=== PATIENT | female | born 1990 | race Caucasian/White ===

== ENCOUNTER 2021-10-17 12:58 | Inpatient (IN) | payer OTHER, SELFPAY ==
[~2021-10-17] VITALS: Ht 162.6 cm; Wt 69.9 kg
[2021-10-17 13:15] VITALS: BP 138/91
[2021-10-17] MEDS ORDERED: NACL 0.9% 1,000 ML IV SCH (13:30)
[2021-10-17] MEDS ORDERED: VANCOMYCIN 1,000 MG in DEXTROSE 5% 250 ML IV ONE (13:35)
--- NOTE | 2021-10-17 13:41 | NUR ---
iv established, labs drawn at this time
[2021-10-17] MEDS ORDERED: cefTRIAXone 1,000 MG VIAL ONE (13:46)
--- NOTE | 2021-10-17 14:06 | NUR ---
31 y/o female referred here from urgent care for uncontrolled dm2 for 13 years. Bs at facility was 425, bs in triage was 427. Pt is c/o of left buttock pain, described as throbbing non-radiating for 2 weeks. Denies nausea, vomiting, diarrhea. Skin is pink/warm/dry. a&o x4 with even and steady gait. Lungs clear bl, heart rate even and regular. Pt denies any fever, cp, sob, or cough at this time. Patient states pain is 7/10 at this time. Vss. patient positioned for comfort. Hob elevated. Bed down. Ermd made aware of pt. Pmh: dm2 [facility]: non compliant due to insurance
[2021-10-17 14:10] LABS: BASOPHILS % (AUTO) 0.2 % (0.0-2.0); EOSINOPHILS # (AUTO) 0.1 K/uL (0-0.4); EOSINOPHILS % (AUTO) 0.5 % (0.0-4.0); HEMATOCRIT 39.9 % (36-48); HEMOGLOBIN 13.5 g/dL (12.0-16.0); LYMPHOCYTES # (AUTO) 2.6 K/uL (2.5-16.5); LYMPHOCYTES % (AUTO) 15.8 % (20.5-51.1); MEAN CORPUSCULAR HEMOGLOBIN 32 pg (27-31); MEAN CORPUSCULAR HGB CONC 34 g/dL (33-37); MEAN CORPUSCULAR VOLUME 93.7 fL (80-94); MONOCYTES % (AUTO) 5.9 % (1.7-9.3); NEUTROPHILS # (AUTO) 12.6 K/uL (1.8-7.7); NEUTROPHILS % (AUTO) 77.6 % (42.2-75.2); PLATELET COUNT (AUTO) 508 K/uL (140-450); RED BLOOD CELL COUNT(AUTO) 4.26 MIL/uL (4.20-5.40); RED CELL DISTRIBUTION WIDTH 12.6 % (11.6-13.7); WHITE BLOOD COUNT (AUTO) 16.2 K/uL (4.8-10.8)
[2021-10-17] MEDS ORDERED: VANCOMYCIN 1,000 MG VIAL ONE (14:20)
--- NOTE | 2021-10-17 14:23 | NUR ---
PT TAKEN TO CT VIA W/C.
[2021-10-17 14:40] LABS: ALBUMIN 2.9 g/dL (3.4-5.0); ANION GAP 13.3 (8-16); CARBON DIOXIDE 29.2 mmol/L (21-32); POTASSIUM 3.5 mmol/L (3.5-5.1); TOTAL BILIRUBIN 0.2 mg/dL (0.0-1.0)
[2021-10-17 14:42] LABS: APPEARANCE,URINE CLEAR (CLEAR); BILIRUBIN,URINE 1+ (NEGATIVE); BLOOD, URINE NEGATIVE (NEGATIVE); COLOR,URINE YELLOW (YELLOW); LEUKOCYTE ESTERASE ,URINE NEGATIVE (NEGATIVE); NITRITE, URINE NEGATIVE (NEGATIVE); UGLUCOSE 3+ (NEGATIVE)
[2021-10-17 15:10] LABS: RBC,URINE 0-5 /HPF (0-5); WBC,URINE 0-5 /HPF (0-5)
[2021-10-17] MEDS ORDERED: HYDROcodone/APAP 5/325 MG 1 TAB TAB PO PRN ×2 (15:45→18:35)
[2021-10-17] MEDS ORDERED: DOCUSATE SODIUM 100 MG GELCAP PO PRN (15:45)
[2021-10-17] MEDS ORDERED: MAGNESIUM OXIDE 400 MG TAB PO PRN (15:45)
[2021-10-17] MEDS ORDERED: ACETAMINOPHEN 325 MG TAB PO PRN ×2 (15:45→18:35)
[2021-10-17] MEDS ORDERED: DEXTROSE 50% 50 ML SYR IVP PRN (15:45)
[2021-10-17] MEDS ORDERED: SODIUM PHOS / POTASSIUM PHOS 1 PKT PDR PO PRN (15:45)
[2021-10-17] MEDS ORDERED: POTASSIUM CHLORIDE 10 MEQ TABER PO PRN (15:45)
[2021-10-17] MEDS ORDERED: VANCOMYCIN PER PHARMACY MC PRN (15:45)
[2021-10-17] MEDS ORDERED: ONDANSETRON 4 MG/2 ML VIAL IM/IVP PRN (15:45)
[2021-10-17] MEDS ORDERED: MORPHINE SULFATE 2 MG/ML SYR IVP PRN ×2 (15:45→18:35)
[2021-10-17] MEDS: INSULIN LISPRO SLIDING SCALE 100 UNITS/ML VIAL SUBQ PRN ×3 (15:56→21:49)
--- NOTE | 2021-10-17 16:14 | NUR ---
Patient will be admitted to care of robyn spencer. Admited to med surg. Will go to room 105a. Belongings list completed. Report to km villareal.
[2021-10-17] MEDS: BLOOD GLUCOSE MONITORING 1 DEV DEV FS SCH ×2 (16:30→21:42)
--- NOTE | 2021-10-17 16:49 | NUR ---
PT ARRIVED ON UNIT VIA WHEEL CHAIR . PT ORIENTED TO ROOM HOSPITAL POLICIES AND MRSA SWAB OBTAINED, ALL SAFETY MEASURES ARE IN PLACE.
[2021-10-17 16:51] LABS: PHOSPHORUS 3.9 mg/dL (2.5-4.9)
[2021-10-17] MEDS: NACL 0.9% 1,000 ML IV SCH ×2 (17:25→21:51)
--- NOTE | 2021-10-17 18:00 | NUR ---
MEAL TRAY SET UP F0R PATIENT FAMILY MEMBER AT BEDSIDE ALL SAFETY MEASURES ARE IN PLACE.
[2021-10-17] MEDS ORDERED: MORPHINE SULFATE 4 MG/ML SYR IV PRN (18:35)
[2021-10-17] MEDS ORDERED: ONDANSETRON 4 MG/2 ML VIAL IV PRN (18:35)
--- NOTE | 2021-10-17 19:06 | NUR ---
OH AT BEDSIDE , EXPLAINED PROCEDURE RISK BENEFITS ALTERNATIVES, MORBIDITY AND MORTALITY . PT VERBALIZED UNDERSTANDING AND NO FURTHER QUESTIONS AT THIS TIME
--- NOTE | 2021-10-17 19:30 | NUR ---
PATIENT ENDORSED TO GROUNDS FOREMAN NURSE FOR CONTINUITY OF CARE. PT IN STABLE CONDITION
--- NOTE | 2021-10-17 19:31 | NUR ---
RECD. RESTING IN BED, AWAKE, A/OX4. RESPIRATION EVEN AND UNLABORED. IV OF NS INFUSING AT 60 ML/HR, LEFT AC G18. SKIN IS INTACT. ABLE TO VERBALIZED NEEDS, AMBULATORY TO THE BR. LEFT BUTTOCKS WITH REDNESS. NPO PAST MIDNIGHT FOR INCISION AND DRAINAGE OF LEFT GLUTEAL AREA. ON IV VANCOMYCIN. DENIES PAIN 0/10.
--- NOTE | 2021-10-17 19:31 | NUR ---
RECD. RESTING IN BED, AWAKE, A/OX4. RESPIRATION EVEN AND UNLABORED. IV OF NS INFUSING AT 60 ML/HR, LEFT HAND G22. ABLE TO VERBALIZED NEEDS. WITH RIGHT SIDE WEAKNESS, USES THE BEDSIDE COMMODE. NO NAUSEA NOTED. DENIES PAIN . Addendum: 10/17/21 at 2314 by Sofya Fulton LVN CORRECTION: THIS CHARTING IS NOT FOR THIS PATIENT.
[2021-10-17 19:51] LABS: ALBUMIN 2.9 g/dL (3.4-5.0); CARBON DIOXIDE 28.6 mmol/L (21-32); CREATININE 0.9 mg/dL (0.6-1.3); POTASSIUM 3.6 mmol/L (3.5-5.1); TOTAL BILIRUBIN 0.2 mg/dL (0.0-1.0)
[2021-10-17 20:00] VITALS: BP 114/72
--- NOTE | 2021-10-17 20:09 | NUR ---
ENDORSED TO LINWOOD BARRIENTOS FOR CONTINUITY OF CARE.
--- NOTE | 2021-10-17 20:10 | NUR ---
RECEIVED REPORT FROM EDWIN FOR CONTINUITY OF CARE. PT IS AWAKE A&OX4. ON RA, NO S/S OF DISTRESS. SKIN IS WARM, DRY AND NON DIAPHORETIC. IV ON LEFT AC 18G RUNNING NS @60 MLS/HR. PT IS NPO AFTER MIDNIGHT. CALL LIGHT WITHIN REACH. ALL SAFETY MEASURES IN PLACE. WILL CONTINUE TO MONITOR.
--- NOTE | 2021-10-17 21:42 | NUR ---
BLOOD SUGAR CHECK 314. ADMINISTERED 8UNITS HUMALOG ORDERED PER SLIDING SCALE. PT TOLERATED IT WELL. WILL CONTINUE TO MONITOR.
--- NOTE | 2021-10-17 23:50 | NUR ---
ROUNDED ON PT. REMINDED PT OF NPO STATUS AFTER MIDNIGHT. PT VERBALIZED UNDERSTANDING. ALL SAFETY MEASURES IN PLACE,
[2021-10-18] MEDS ORDERED: VANCOMYCIN 1,000 MG VIAL ONE (01:37)
--- NOTE | 2021-10-18 01:50 | NUR ---
ADMINISTERED SCHEDULED MEDICATION. PT TOLERATED IT WELL. WILL CONTINUE TO MONITOR
[2021-10-18] MEDS ORDERED: VANCOMYCIN 750 MG in DEXTROSE 5% 250 ML IV SCH (02:00)
[2021-10-18 02:33] LABS: PROTHROMBIN TIME 10.1 secs (10.8-13.4)
[2021-10-18 04:00] VITALS: BP 120/74
--- NOTE | 2021-10-18 04:08 | NUR ---
ROUNDED ON PT. VITAL SIGNS TAKEN .RESTING IN BED. NO S/S OF DISTRESS. ALL SAFETY MEASURES IN PLACE. WILL CONTINUE TO MONITOR.
--- NOTE | 2021-10-18 06:30 | NUR ---
BS CHECK 290 COVERAGE HELD PER PROTOCOL. PT IS NPO FOR SCHEDULED I&D AT 0830. CHARGE NURSE AWARE. CHG BATH PROVIDED.
[2021-10-18] MEDS: BLOOD GLUCOSE MONITORING 1 DEV DEV FS SCH ×4 (06:41→21:53)
[2021-10-18 06:45] LABS: BASOPHILS % (AUTO) 0.3 % (0.0-2.0); EOSINOPHILS # (AUTO) 0.1 K/uL (0-0.4); EOSINOPHILS % (AUTO) 0.6 % (0.0-4.0); HEMATOCRIT 33.2 % (36-48); HEMOGLOBIN 11.3 g/dL (12.0-16.0); LYMPHOCYTES # (AUTO) 2.5 K/uL (2.5-16.5); LYMPHOCYTES % (AUTO) 17.5 % (20.5-51.1); MEAN CORPUSCULAR HEMOGLOBIN 32 pg (27-31); MEAN CORPUSCULAR HGB CONC 34 g/dL (33-37); MEAN CORPUSCULAR VOLUME 92.4 fL (80-94); MONOCYTES # (AUTO) 0.8 K/uL (0.8-1.0); MONOCYTES % (AUTO) 5.9 % (1.7-9.3); NEUTROPHILS # (AUTO) 10.7 K/uL (1.8-7.7); NEUTROPHILS % (AUTO) 75.7 % (42.2-75.2); PLATELET COUNT (AUTO) 399 K/uL (140-450); RED BLOOD CELL COUNT(AUTO) 3.59 MIL/uL (4.20-5.40); RED CELL DISTRIBUTION WIDTH 12.3 % (11.6-13.7); WHITE BLOOD COUNT (AUTO) 14.2 K/uL (4.8-10.8)
--- NOTE | 2021-10-18 07:17 | NUR ---
ENDORSED TO AM SHIFT NURSE FOR CONTINUITY OF CARE.PT IS STABLE.
--- NOTE | 2021-10-18 07:29 | NUR ---
PT REPORT RECEIVED FROM MANAGER AUDIT NURSE. PATIENT RESTING IN BED EYES CLOSED. REMAINS NPO. PT EDUCATED AND VERBALIZED UNDERSTANDING RE: NPO STATUS. ALL SAFETY MEASURES IN PLACE.
[2021-10-18] MEDS ORDERED: PROPOFOL 200 MG/20 ML VIAL IV ONE (07:30)
[2021-10-18] MEDS ORDERED: ONDANSETRON 4 MG/2 ML VIAL ONE (07:30)
[2021-10-18] MEDS ORDERED: ePHEDrine 50 MG/ML VIAL ONE (07:30)
[2021-10-18] MEDS ORDERED: DEXAMETHASONE 4 MG/ML VIAL ONE (07:30)
[2021-10-18] MEDS ORDERED: LIDOCAINE 2% 100 MG/5 ML SYR IVP ONE (07:30)
[2021-10-18] MEDS ORDERED: SEVOFLURANE 250 ML BTL INH ONE (07:30)
[2021-10-18] MEDS ORDERED: fentaNYL citrate 0.05 MG/ML VIAL ONE (08:14)
[2021-10-18] MEDS: PANTOPRAZOLE 40 MG TABEC PO SCH (08:19)
--- NOTE | 2021-10-18 08:35 | NUR ---
PATIENT LEFT UNIT FOR PROCEDURE. PATIENT IN STABLE CONDITION
[2021-10-18] MEDS ORDERED: BUPIVACAINE-MPF/EPI 0.25% 30 ML VIAL INJ ONE (08:47)
[2021-10-18] MEDS ORDERED: LIDOCAINE 1% 500 MG/50 ML VIAL ONE (08:47)
--- NOTE | 2021-10-18 10:15 | NUR ---
PATIENT ARRIVED FROM OR, PT VITALS OBTAINED. ALL SAFETY MEASURES ARE IN PLACE.
--- NOTE | 2021-10-18 10:30 | NUR ---
PT COMPLAINS OF 10/10 PAIN IN HER BUCCOCKS AREA RADIATES TO HER THIGHS . PAIN IS CONSTANT AND ACHING . PRN MEDICATION GIVEN PER MD ORDER. ALL SAFETY MEASURES ARE IN PLACE.
[2021-10-18] MEDS: HYDROmorphone 1 MG/ML AMP IVP PRN (10:36)
[2021-10-18] MEDS: INSULIN LISPRO SLIDING SCALE 100 UNITS/ML VIAL SUBQ PRN ×3 (11:49→21:54)
[2021-10-18 12:00] VITALS: BP 138/82
--- NOTE | 2021-10-18 12:00 | NUR ---
MEDICATIONS GIVEN PER MD ORDER. PT EDUCATED AND VERBALIZED UNDERSTANDING , PATIENTS BED IN LOWEST POSITION, NON SLIP SOCKS ON , ALL BELONGINGS WITHIN REACH , CALL LIGHT WITHIN REACH . ALL SAFETY MEASURES ARE IN PLACE.
[2021-10-18 14:16] LABS: ANION GAP 11.5 (8-16); CARBON DIOXIDE 29.1 mmol/L (21-32); CREATININE 0.6 mg/dL (0.6-1.3); POTASSIUM 4.6 mmol/L (3.5-5.1)
--- NOTE | 2021-10-18 14:25 | NUR ---
PATIENT AMBULATED TOLERATED WELL ALL SAFETY MEASURES ARE IN PLACE.
[2021-10-18] MEDS: VANCOMYCIN 1,000 MG in DEXTROSE 5% 250 ML IV SCH (15:36)
--- NOTE | 2021-10-18 16:25 | NUR ---
BG 399 , PRN MEDICATION GIVEN PER MD ORDER, DIET CHANGED TO CCHO 45 G. ALL SAFETY EMASURES IN PLACE
--- NOTE | 2021-10-18 18:25 | NUR ---
PT RESTING IN BED REQUEST WATER , WATER GIVEN PATIENT TOLERATING DINNER WELL DENIES NAUSEA AND VOMITING ALL SAFETY MEASURES ARE IN PLACE.
--- NOTE | 2021-10-18 19:23 | NUR ---
PATIENT ENDORSED TO PRODUCTION CONTROL PLANNER NURSE , PATIENT IN STABLE CONDITION
[2021-10-18 20:00] VITALS: BP 117/75
[2021-10-18] MEDS ORDERED: ACETAMINOPHEN 650 MG/20.3 ML UDC PO PRN (20:40)
[2021-10-18] MEDS ORDERED: POTASSIUM CHLORIDE 10 MEQ TABER PO SCH (20:40)
[2021-10-18] MEDS: NACL 0.9% 1,000 ML IV SCH (21:31)
--- NOTE | 2021-10-18 21:50 | NUR ---
RESTING IN BED, WATCHING TV. SNACK FOR THE NIGHT GIVEN. NO COMPLAINT OF PAIN 0/10.
--- NOTE | 2021-10-19 00:15 | NUR ---
NOTIFIED BY OFE PINEDA THAT ORDER FOR ABX IVPB NEEDS TO BE HUNG.
[2021-10-19] MEDS: VANCOMYCIN 1,000 MG in DEXTROSE 5% 250 ML IV SCH ×3 (00:17→15:00)
[2021-10-19] MEDS: NACL 0.9% 1,000 ML IV SCH ×2 (01:05→22:31)
--- NOTE | 2021-10-19 01:30 | NUR ---
SLEEPING COMFORTABLY IN BED, RESPIRATION EVEN AND UNLABORED.
--- NOTE | 2021-10-19 02:25 | NUR ---
RESTING IN BED, MEDICATED WITH NORCO PO PER MD ORDER. ENCOURAGED TO AMBULATE MORE IN THE MORNING. EXPLAINED THE IMPORTANCE OF AMBULATION TO RECOVER EARLY. NO BM YET BUT PASSING GAS.
[2021-10-19 04:00] VITALS: BP 120/72
--- NOTE | 2021-10-19 04:00 | NUR ---
SLEEPING COMFORTABLY IN BED. RESPIRATION EVEN AND UNLABORED. CALL LIGHT IN REACH.
[2021-10-19] MEDS: BLOOD GLUCOSE MONITORING 1 DEV DEV FS SCH ×3 (06:21→17:56)
[2021-10-19] MEDS: INSULIN LISPRO SLIDING SCALE 100 UNITS/ML VIAL SUBQ PRN ×3 (06:25→18:01)
[2021-10-19 06:49] LABS: BASOPHILS % (AUTO) 0.2 % (0.0-2.0); EOSINOPHILS # (AUTO) 0.1 K/uL (0-0.4); EOSINOPHILS % (AUTO) 0.7 % (0.0-4.0); HEMATOCRIT 34.3 % (36-48); HEMOGLOBIN 11.7 g/dL (12.0-16.0); LYMPHOCYTES # (AUTO) 3.5 K/uL (2.5-16.5); LYMPHOCYTES % (AUTO) 30.1 % (20.5-51.1); MEAN CORPUSCULAR HEMOGLOBIN 32 pg (27-31); MEAN CORPUSCULAR HGB CONC 34 g/dL (33-37); MEAN CORPUSCULAR VOLUME 93.5 fL (80-94); MONOCYTES # (AUTO) 0.8 K/uL (0.8-1.0); MONOCYTES % (AUTO) 6.4 % (1.7-9.3); NEUTROPHILS # (AUTO) 7.4 K/uL (1.8-7.7); NEUTROPHILS % (AUTO) 62.6 % (42.2-75.2); PLATELET COUNT (AUTO) 432 K/uL (140-450); RED BLOOD CELL COUNT(AUTO) 3.67 MIL/uL (4.20-5.40); RED CELL DISTRIBUTION WIDTH 12.1 % (11.6-13.7); WHITE BLOOD COUNT (AUTO) 11.8 K/uL (4.8-10.8)
[2021-10-19 06:57] LABS: ANION GAP 11.4 (8-16); CARBON DIOXIDE 30.8 mmol/L (21-32); CREATININE 0.6 mg/dL (0.6-1.3); POTASSIUM 4.2 mmol/L (3.5-5.1)
--- NOTE | 2021-10-19 07:15 | NUR ---
RECEIVED BEDSIDE REPORT FROM DEVELOPMENT ENG NURSE FOR CONTINUITY OF CARE. PT IS AWAKE AND ALERT. RESPONDING APPROPRIATELY. ON RA WITH BREATHING UNLABORED. AMBULATORY INDEPENDENTLY. WOUND ON THE LEFT BUTTOCK. SKIN IS WARM AND DRY. PT IS STABLE. PLAN OF CARE DISCUSSED.
--- NOTE | 2021-10-19 07:15 | NUR ---
CONDITION REMAIN STABLE. ENDORSED TO AM SHIFT NURSE FOR CONTINUITY OF CARE.
[2021-10-19 08:00] VITALS: BP 115/54
[2021-10-19] MEDS ORDERED: INSULIN LANTUS 100 UNITS/ML 10 ML VIAL SUBQ SCH (09:00)
[2021-10-19] MEDS ORDERED: DOCU-299 PO (09:07)
[2021-10-19] MEDS ORDERED: LANTUS SUBQ (09:07)
[2021-10-19] MEDS ORDERED: ACET-9525 PO (09:07)
[2021-10-19] MEDS: PANTOPRAZOLE 40 MG TABEC PO SCH (09:23)
--- NOTE | 2021-10-19 09:27 | NUR ---
PT WAS GIVEN TYLENOL FOR MILD PAIN AT A SCALE OF 3/10. WILL MONITOR PAIN.
[2021-10-19 10:56] VITALS: BP 115/54
--- NOTE | 2021-10-19 11:00 | NUR ---
ROUNDED ON PT. SHE IS AWAKE. DENIES PAIN. WATCHING TV IN SEMI FOWLERS POSITION. PT IS STABLE.
--- NOTE | 2021-10-19 12:35 | NUR ---
MESSAGED DR. THOMAS AND ASKED IF PT IS CLEARED FOR DISCHARGE. WILL WAIT FOR RESPONSE BACK.
--- NOTE | 2021-10-19 13:00 | NUR ---
ASSESSED WOUND. DRESSING ON BUTTOCKS, S/P I&D, SOILED WITH MODERATE DRAINAGE. PT STATES THE DRESSING ITCHES. WILL CLEANSED WOUND PER PROTOCOL AND APPLY DRESSING PRIOR TO DISCHARGE. PT DENIES PAIN AT THIS TIME.
[2021-10-19] MEDS: HYDROmorphone 1 MG/ML AMP IVP PRN (14:40)
--- NOTE | 2021-10-19 14:40 | NUR ---
DR. THOMAS AT BEDSIDE CHANGING WOUND DRESSING ON LEFT BUTTOCK. PACKING WAS REMOVED AND TWO GAUZE PACKINGS WERE APPLIED. DRESSING PLACED OVER WOUND. DILAUDID WAS GIVEN ORDERED BY DR. THOMAS PRIOR TO DRESSING CHANGE. DR. THOMAS STATED SHE COULD BE DISCHARGED AFTER SHE RECEIVED WOUND DRESSING INSTRUCTIONS. PACKING AND NEW DRESSING APPLIED DAILY BY FAMILY MEMBER.
[2021-10-19] MEDS ORDERED: CLIN300C2 PO (15:37)
--- NOTE | 2021-10-19 15:54 | NUR ---
DC [age] YRS OLD FEMALE PATIENT WAS ADMITTED FROM HOME WITH A DX OF LEFT GLUTEAL CELLULITIS. PATIENT HAS A HX OF DM. CT ABD SHOWED LEFT GLUTEAL SOFT TISSUE MASS. ADMINISTERED IVF, IV ABX ROCEPHIN AND VANCOMYCIN. CONSULTED WITH DR THOMAS PERFORMED I&D. PATIENT IS STABLE FOR DC, PT'S MOTHER TO HELP WITH DRESSING CHANGE. CM TO FOLLOW
[2021-10-19 16:00] VITALS: BP 141/81
--- NOTE | 2021-10-19 16:23 | NUR ---
MOTHER AT BEDSIDE. RN TOOK PIC OF WOUND AND PROVIDED TEACHING TO MOTHER ABOUT DRESSING CHANGES. TAUGHT HER TO PACK THE WOUND WITH DRY 4X4 GAUZE AND COVER WITH DRY DRESSING. MOTHER STATED SHE WOULD NOT BE ABLE TO ASSIST IN WOUND DRESSING CHANGES. KATE HERNANDEZ, MANAGER STAR, AND SHE IS WORKING ON SETTING UP HOME HEALTH WOUND CARE.
--- NOTE | 2021-10-19 16:30 | NUR ---
PATIENT HAS BEEN SCREENED AND CATEGORIZED MODERATE NUTRITION RISK. PATIENT WILL BE SEEN WITHIN 3-5 DAYS OF ADMISSION. 10/19/21 10/22/[address]
--- NOTE | 2021-10-19 16:40 | NUR ---
PT WAS DISCHARGED FROM THE HOSPITAL WITH MOTHER. DRESSING WAS REINFORCED PRIOR TO DEPARTURE. PT IS AWAKE AND ALERT. BREATHING UNLABORED. VS ARE STABLE. PT DENIES PAIN. DRESSING AND WOUND CARE PROVIDED TO PT TO TAKE HOME. HOME HEALTH TO BE SET UP TOMORROW BY DAVID. PRESCRIPTIONS WERE PICKED UP BY MOTHER PRIOR TO DRYING MACHINE OPERATOR PACKAGE YARNS. PT RECEIVED ALL MEDS. IV AND ID BAND IS REMOVED.
--- NOTE | 2021-10-19 17:10 | NUR ---
DAVID, ENLISTED AIRCREW/AERIAL OBSERVER/GUNNER, AT BEDSIDE EXPLAINING HOME HEALTH. DAVID STATED SHE WOULD FOLLOW UP TOMORROW WITH THE HOME HEALTH AG[facility] THE PT WILL GET A CALL FROM THEM IN 24-48 HOURS. PT WAS GIVEN DRESSINGS AND SUPPLIES TO CHANGE WOUND. WOUND CARE TEACHING WAS PROVIDED AGAIN TO PT AND MOTHER. PT WILL BE DISCHARGED FROM THE HOSPITAL SOON.
== END 2021-10-19 18:40 | disposition home health service (06) | DRG 854 ==
LOC: MED 12:58 → MTU 15:48
PROVIDERS: ADMIT Hospitalist; ATTEND Hospitalist
PROC: 0J990ZZ Drainage of Buttock Subcutaneous Tissue and Fascia, Open Approach (ICD-10-PCS; 2021-10-18)
PROC: 0JB90ZZ Excision of Buttock Subcutaneous Tissue and Fascia, Open Approach (ICD-10-PCS; principal; 2021-10-18 08:30)
DX: A41.9 Sepsis, unspecified organism (principal); L02.31 Cutaneous abscess of buttock; E44.0 Moderate protein-calorie malnutrition; E87.1 Hypo-osmolality and hyponatremia; L03.317 Cellulitis of buttock; Z20.822 Contact with and (suspected) exposure to COVID-19; R65.20 Severe sepsis without septic shock; E86.0 Dehydration; E11.65 Type 2 diabetes mellitus with hyperglycemia; Z91.14 Patient's other noncompliance with medication regimen; Z68.26 Body mass index [BMI] 26.0-26.9, adult
CPT/HCPCS: 36415; 71045; 80048; 80053; 80202; 81001; 81025; 82948; 83036; 83605; 83690; 83735; 84100; 84703; 85025; 85610; 85730; 87040; 87070; 87075; 87081; 87205; 96365; 96368; 99285; J0696; J1100; J1170; J1815; J2001; J2405; J2704; J3010; J3370; J3490; J7060; Q0092; Q9967